=== PATIENT | female | born 1970 | race African-American/Black ===

== ENCOUNTER 2016-07-14 22:03 | Emergency (ER) | payer MEDICAID, OTHER ==
[~2016-07-14] VITALS: Ht 160 cm; Wt 73.0 kg
[~2016-07-14 22:03] MED LIST: IBUP-1008; TRAM50TA
[2016-07-14 23:14] VITALS: BP 105/71
[2016-07-15 00:31] LABS: BASOPHILS % 1.2 % (0.0-2.0); DIFFERENTIAL COMMENT 0; EOSINOPHILS % 0.9 % (0.0-5.0); HEMATOCRIT. 38.7 % (36.0-48.0); MEAN CORPUSCULAR HEMOGLOBIN 25.8 pg (28.0-32.0); MEAN CORPUSCULAR HGB CONC 33.6 g/dL (31.0-37.0); MEAN CORPUSCULAR VOLUME 76.9 fL (81.0-99.0); MEAN PLATELET VOLUME 9.2 fl (7.4-10.4); MONOCYTES % 8.3 % (2.0-8.0); NEUTROPHILS % 49.6 % (40.0-76.0); PLATELET 223 x1000/uL (130-400); RED BLOOD CELL COUNT 5.04 mill/uL (4.2-5.4); RED CELL DISTRIBUTION WIDTH 15.1 % (11.6-14.6); WHITE BLOOD COUNT 8.3 x1000/uL (4.5-11.0)
[2016-07-15 00:34] LABS: CLARITY URINE CLEAR (CLEAR); COLOR URINE RED (YELLOW); GLUCOSE URINE NEGATIVE (NEGATIVE); KETONES URINE NEGATIVE (NEGATIVE); LEUKOCYTE ESTERASE URINE TRACE (NEGATIVE); NITRITE URINE NEGATIVE (NEGATIVE); OCCULT BLOOD URINE 3+ (NEGATIVE); PROTEIN URINE NEGATIVE (NEGATIVE); SPECIFIC GRAVITY URINE 1.009 (1.005-1.030)
[2016-07-15 00:37] LABS: CHLORIDE 106 mEq/L (98-107); INDEX HEMOLYSI 1 (1-3); INDEX ICTERIC 1 (1-4); INDEX LIPEMIC 1 (1-3)
[2016-07-15 00:43] LABS: ANION GAP 12; CALCIUM 8.3 mg/dL (8.5-10.1); CARBON DIOXIDE 25 mEq/L (21-32); UREA NITROGEN BLOOD 14 mg/dL (7-21); eGFR > 60 mL/min (>60)
[2016-07-15 01:31] LABS: RBC URINE TNTC /hpf (0-2); SQUAMOUS EPITHELIAL CELL URINE FEW /lpf (RARE/1+)
[2016-07-15 01:32] LABS: BACTERIA URINE NONE SEEN; WBC URINE 0-2 /hpf (0-2)
== END 2016-07-15 01:15 | disposition home or self-care (01) ==
LOC: ER 22:04
DX: N94.6 Dysmenorrhea, unspecified (principal); F17.200 Nicotine dependence, unspecified, uncomplicated
CPT/HCPCS: 36415; 80048; 81001; 81025; 85025; 99284; Z7610

== ENCOUNTER 2016-08-02 16:07 | Emergency (ER) | payer OTHER ==
[~2016-08-02] VITALS: Ht 162.6 cm; Wt 70.0 kg
[2016-08-02 19:37] VITALS: BP 110/75
[2016-08-02 19:43] LABS: CHLORIDE 108 mEq/L (98-107); DIFFERENTIAL COMMENT 0; EOSINOPHILS % 1.4 % (0.0-5.0); HEMATOCRIT. 27.4 % (36.0-48.0); HEMOGLOBIN. 9.1 g/dL (12.0-16.0); INDEX HEMOLYSI 1 (1-3); INDEX ICTERIC 1 (1-4); INDEX LIPEMIC 1 (1-3); LYMPHOCYTES % 40.5 % (20.0-50.0); MEAN CORPUSCULAR HEMOGLOBIN 25.6 pg (28.0-32.0); MEAN CORPUSCULAR HGB CONC 33.2 g/dL (31.0-37.0); MEAN CORPUSCULAR VOLUME 77.2 fL (81.0-99.0); MEAN PLATELET VOLUME 9.8 fl (7.4-10.4); MONOCYTES % 8.8 % (2.0-8.0); NEUTROPHILS % 48.3 % (40.0-76.0); PLATELET 233 x1000/uL (130-400); RED BLOOD CELL COUNT 3.55 mill/uL (4.2-5.4); RED CELL DISTRIBUTION WIDTH 14.7 % (11.6-14.6); WHITE BLOOD COUNT 8.1 x1000/uL (4.5-11.0)
[2016-08-02 19:49] LABS: HCG SCREEN NEGATIVE
[2016-08-02 19:54] LABS: ALANINE AMINOTRANSFERASE 11 IU/L (13-61); ALBUMIN 3.4 g/dL (3.4-5.0); ANION GAP 11; B-HCG QUANTITATIVE < 1 mIU/mL (<3); CALCIUM 7.8 mg/dL (8.5-10.1); CARBON DIOXIDE 25 mEq/L (21-32); UREA NITROGEN BLOOD 8 mg/dL (7-21); eGFR > 60 mL/min (>60)
== END 2016-08-02 21:10 | disposition home or self-care (01) ==
LOC: ER 18:19
DX: N93.8 Other specified abnormal uterine and vaginal bleeding (principal)
CPT/HCPCS: 36415; 76830; 76856; 80053; 84702; 84703; 85025; 99285

== ENCOUNTER 2020-10-27 22:38 | Emergency (ER) | payer OTHER ==
[~2020-10-27] VITALS: Ht 160 cm; Wt 69.0 kg
[2020-10-28] MEDS ORDERED: IBUPROFEN 600MG TABLET PO ONE (01:45)
[2020-10-28] MEDS ORDERED: BACITRACIN ZINC OINT UDPKT TOP ONE (01:45)
[2020-10-28] MEDS ORDERED: LIDOCAINE HCL/PF 1% 10 MG/ML 5ML VIAL INFIL ONE (01:45)
[2020-10-28 02:36] VITALS: BP 123/71
[2020-10-28] MEDS ORDERED: CEPH500T MT (03:12)
[2020-10-28] MEDS ORDERED: BO1 TP (03:12)
[2020-10-28] MEDS ORDERED: NAPR-681 PO (03:12)
== END 2020-10-28 03:21 | disposition home or self-care (01) ==
LOC: ER 22:43
DX: L60.0 Ingrowing nail (principal); E11.9 Type 2 diabetes mellitus without complications; K21.9 Gastro-esophageal reflux disease without esophagitis
CPT/HCPCS: 99282; J3490

== ENCOUNTER 2021-08-24 08:56 | Emergency (ER) | payer MEDICAID, OTHER ==
[~2021-08-24] VITALS: Ht 157.5 cm; Wt 68.0 kg
[~2021-08-24 08:56] MED LIST changes: +BO1 TP; +CEPH500T MT; +NAPR-681 PO
[2021-08-24] MEDS ORDERED: ACETAMINOPHEN 500MG TABLET PO ONE (11:15)
[2021-08-24] MEDS ORDERED: MECLIZINE 25MG TABLET PO ONE (12:15)
[2021-08-24 12:25] LABS: HEMATOCRIT 39.5 % (36.0-48.0); HEMOGLOBIN 13.2 g/dL (12.0-16.0); MEAN CORPUSCULAR HEMOGLOBIN 26.1 pg (28.0-32.0); MEAN CORPUSCULAR VOLUME 77.7 fL (81.0-99.0); PLATELET 209 x1000/uL (130-400); RED BLOOD CELL COUNT 5.08 mill/uL (4.2-5.4); RED CELL DISTRIBUTION WIDTH 14.9 % (11.6-14.6)
[2021-08-24 12:33] LABS: CHLORIDE 109 mEq/L (98-107)
[2021-08-24] MEDS ORDERED: IOHEXOL-350 100 ML BOTTLE ONE (13:45)
[2021-08-24 15:24] VITALS: BP 133/75
== END 2021-08-24 15:25 | disposition home or self-care (01) ==
LOC: ER 09:15
DX: S09.8XXA Other specified injuries of head, initial encounter (principal); M25.552 Pain in left hip; E11.9 Type 2 diabetes mellitus without complications; K21.9 Gastro-esophageal reflux disease without esophagitis; V49.69XA Unspecified car occupant injured in collision with other motor vehicles in traffic accident, initial encounter; Y93.89 Activity, other specified; Y92.410 Unspecified street and highway as the place of occurrence of the external cause; Z98.890 Other specified postprocedural states
CPT/HCPCS: 36415; 70450; 70496; 70498; 73110; 73502; 73630; 80048; 85027; 99285; Q9967; J8597

== ENCOUNTER 2023-12-05 15:13 | Emergency (ER) | payer MEDICAID ==
[~2023-12-05] VITALS: Ht 160 cm; Wt 80.0 kg
[2023-12-05 15:41] VITALS: O2SAT 100
[2023-12-05] MEDS ORDERED: CIPHCO LEFT EAR (17:06)
[2023-12-05 17:27] VITALS: BP 118/70; PULSE 77; RESP 16; TEMP 36.78072; O2SAT 100
== END 2023-12-05 17:27 | disposition home or self-care (01) ==
LOC: ER 15:13
DX: H60.502 Unspecified acute noninfective otitis externa, left ear (principal); Z98.890 Other specified postprocedural states
CPT/HCPCS: 99283

== ENCOUNTER 2024-11-29 04:18 | Emergency (ER) | payer MEDICAID ==
[~2024-11-29] VITALS: Ht 167.6 cm; Wt 82.0 kg
[~2024-11-29 04:18] MED LIST changes: +CIPHCO LEFT EAR
[2024-11-29 04:49] VITALS: O2SAT 98
[2024-11-29 06:17] VITALS: BP 115/66; PULSE 87; RESP 18; TEMP 36.8; O2SAT 100
== END 2024-11-29 06:19 | disposition home or self-care (01) ==
LOC: ER 04:18
DX: L60.0 Ingrowing nail (principal); M79.674 Pain in right toe(s); E11.9 Type 2 diabetes mellitus without complications; Z79.899 Other long term (current) drug therapy
CPT/HCPCS: 82962; 99282